=== PATIENT | female | born 1995 | race Caucasian/White ===

== ENCOUNTER 2018-03-25 18:54 | Emergency (ER) | payer SELFPAY ==
[~2018-03-25] VITALS: Ht 162.6 cm; Wt 63.6 kg
[2018-03-25 19:23] VITALS: BP 127/89
[2018-03-25] MEDS ORDERED: BIRTH CONTROL PO (19:30)
[2018-03-25 20:55] LABS: APPEARANCE,URINE CLEAR (CLEAR); BILIRUBIN,URINE NEGATIVE (NEGATIVE); GLUCOSE, URINE (UA) NEGATIVE (NEGATIVE); KETONES,URINE TRACE mg/dL (NEGATIVE); LEUKOCYTE ESTERASE ,URINE NEGATIVE (NEGATIVE); NITRATE,URINE NEGATIVE (NEGATIVE); OCCULT BLOOD,URINE LARGE (NEGATIVE); PROTEIN,URINE TRACE (NEGATIVE); UROBILINOGEN,URINE 0.2 mg/dL (<=1.0)
[2018-03-25 21:15] LABS: WBC,URINE 0-2 /HPF (0-5)
[2018-03-25 21:16] LABS: BACTERIA,URINE Rare /HPF (None Seen); RBC,URINE 26-50 /HPF (0-2); SQUAMOUS EPITHELIAL CELL,UR Few /LPF (None Seen)
== END 2018-03-26 | disposition left against medical advice (07) ==
LOC: EMS 18:56
DX: R19.7 Diarrhea, unspecified (principal); Z53.21 Procedure and treatment not carried out due to patient leaving prior to being seen by health care provider

== ENCOUNTER 2020-02-09 10:51 | Emergency (ER) | payer OTHER ==
[~2020-02-09] VITALS: Ht 165.1 cm; Wt 72.7 kg
[~2020-02-09 10:51] MED LIST: BIRTH CONTROL PO
[2020-02-09 10:55] VITALS: BP 147/89
== END 2020-02-09 11:51 | disposition home or self-care (01) ==
LOC: EMS 10:55
DX: U07.1 COVID-19 (principal); Z88.1 Allergy status to other antibiotic agents
CPT/HCPCS: 99283; U0003